=== PATIENT | male | born 1945 | race Caucasian/White ===

== ENCOUNTER → 2024-01-18 11:37 | Outpatient (REF) | payer BC, SELFPAY ==
[2024-01-18 11:50] LABS: Urine Albumin Negative (Neg - Trace); Urine Bilirubin Negative (Negative); Urine Character Clear (Clear); Urine Color Yellow; Urine Glucose Negative (Negative); Urine Ketone Negative (Negative); Urine Leukocyte Negative (Negative); Urine Nitrite Negative (Negative); Urine Occult Blood Negative (Negative); Urine Urobilinogen Negative (Neg - 1+); Urine pH 6.5 (5.0-9.0)
[2024-01-18 11:58] LABS: % Basophils 0.8 % (0-2); % Eosinophils 1.8 % (0-6); % Immature Granulocytes 0.3 % (0-0.5); % Lymphocytes 25.2 % (20.5-51.1); % Monocytes 9.9 % (1.7-9.3); Absolute Eosinophils 0.1 10^3/uL (0-0.7); Absolute Monocytes 0.4 10^3/uL (0.1-0.6); Absolute Neutrophils 2.4 10^3/uL (1.4-6.5); Hematocrit 41.2 % (39.0-52.0); Hemoglobin 14.2 g/dL (13.0-18.0); Mean Corp Hgb Conc. 34.5 g/dL (33.0-37.0); Mean Corpuscular Hgb 33.9 pg (27.0-31.0); Mean Corpuscular Volume 98.3 fL (80.0-94.0); Mean Platelet Volume 11.6 fL (7.4-10.4); Nucleated Red Blood Cells % 0 % (-); Platelet Count 178 10^3/uL (130-400); Red Blood Cell Count 4.19 10^6/uL (4.70-6.10); Red Cell Dist. Width 12.8 % (11.5-14.5); White Blood Cell Count 3.9 10^3/uL (4.8-10.8)
[2024-01-18 12:02] LABS: ALT (SGPT) 21 U/L (0-50); AST (SGOT) 29 U/L (17-59); Alkaline Phosphatase 64 U/L (38-126); Blood Urea Nitrogen 17 mg/dl (9-20); Calcium 9.4 mg/dl (8.4-10.2); Carbon Dioxide 32 mmol/L (22-30); Chloride 101 mmol/L (98-107); Glucose 84 mg/dl (70-99); HDL Cholesterol 53 mg/dl; LDL Cholesterol, Calculated 82 mg/dl; Phosphorus 3.4 mg/dl (2.5-4.5); Potassium 4.4 mmol/L (3.5-5.1); Sodium 136 mmol/L (135-145); Total Bilirubin 0.9 mg/dl (0.2-1.3); Total Cholesterol 147 mg/dl (50-199); Total Protein 6.3 g/dl (6.3-8.2); Triglyceride 64 mg/dl (10-149); Very Low Density Lipoprotein 12 mg/dl (0-30); eGFR > 60.00
[2024-01-18 13:45] LABS: Vitamin D, 25-OH*** 35.1 ng/mL (30-80)
[2024-01-18 13:59] LABS: PSA, Total - Diagnostic 0.77 ng/ml (0.0-4.0)
== END ==
LOC: OLABPV 11:37
PROVIDERS: ATTENDING PHYSICIAN Internal Medicine Geriatric Medicine
DX: E78.2 Mixed hyperlipidemia (principal); Z00.00 Encounter for general adult medical examination without abnormal findings; Z12.5 Encounter for screening for malignant neoplasm of prostate; E87.1 Hypo-osmolality and hyponatremia
CPT/HCPCS: 36415; 80053; 80061; 81003; 82306; 84100; 84153; 85025

== ENCOUNTER → 2025-01-02 13:13 | Outpatient (REF) | payer BC, MEDICARE, SELFPAY | LOC: RAD 13:13 | PROVIDERS: ATTENDING PHYSICIAN Nurse Practitioner Primary Care | DX: M79.651 Pain in right thigh (principal); M54.50 Low back pain, unspecified | CPT/HCPCS: 72110; 73552 ==

== ENCOUNTER → 2025-01-09 09:50 | Outpatient (REF) | payer BC, MEDICARE, SELFPAY ==
[2025-01-09 10:51] LABS: Hematocrit 40.1 % (39.0-52.0); Hemoglobin 13.8 g/dL (13.0-18.0); Mean Corp Hgb Conc. 34.4 g/dL (33.0-37.0); Mean Corpuscular Volume 97.3 fL (80.0-94.0); Nucleated Red Blood Cells % 0 % (-); Platelet Count 171 10^3/uL (130-400); Red Cell Dist. Width 12.7 % (11.5-14.5)
[2025-01-09 11:20] LABS: Vitamin D, 25-OH*** 40.5 ng/mL (30-80)
[2025-01-09 11:48] LABS: ALT (SGPT) 22 U/L (0-50); AST (SGOT) 25 U/L (17-59); Albumin 4.3 g/dl (3.5-5.0); Alkaline Phosphatase 57 U/L (38-126); Blood Urea Nitrogen 16 mg/dl (9-20); Calcium 9.1 mg/dl (8.4-10.2); Carbon Dioxide 29 mmol/L (22-30); Chloride 104 mmol/L (98-107); Glucose 80 mg/dl (70-99); HDL Cholesterol 55 mg/dl; LDL Cholesterol, Calculated 81 mg/dl; Potassium 4.4 mmol/L (3.5-5.1); Sodium 138 mmol/L (135-145); Total Protein 6.7 g/dl (6.3-8.2); Very Low Density Lipoprotein 13 mg/dl (0-30); eGFR > 60.00
== END ==
LOC: OLABPV 09:50
PROVIDERS: ATTENDING PHYSICIAN Nurse Practitioner Primary Care
DX: M79.651 Pain in right thigh (principal); E78.2 Mixed hyperlipidemia
CPT/HCPCS: 36415; 80053; 80061; 82306; 84443; 85025

== ENCOUNTER → 2025-01-31 11:32 | Outpatient (REF) | payer BC, MEDICARE, SELFPAY ==
[2025-01-31 13:34] LABS: FSH 2.8 mIU/ml (1.55-9.74)
[2025-01-31 13:49] LABS: PSA, Total - Screen 0.75 ng/ml (0.0-4.0)
== END ==
LOC: OLABPV 11:32
PROVIDERS: ATTENDING PHYSICIAN Internal Medicine Geriatric Medicine
DX: E78.2 Mixed hyperlipidemia (principal); Z00.00 Encounter for general adult medical examination without abnormal findings; Z91.81 History of falling; M54.50 Low back pain, unspecified; Z12.5 Encounter for screening for malignant neoplasm of prostate; N52.8 Other male erectile dysfunction
CPT/HCPCS: 36415; 83001; 83002; 84270; 84402; 84403; G0103

== ENCOUNTER → 2025-02-21 11:33 | Outpatient (REF) | payer MEDICARE, BC, SELFPAY | LOC: OLABPV 11:33 | PROVIDERS: ATTENDING PHYSICIAN Internal Medicine Geriatric Medicine | DX: N52.9 Male erectile dysfunction, unspecified (principal); Z79.899 Other long term (current) drug therapy; R30.0 Dysuria | CPT/HCPCS: 36415; 84270; 84402; 84403 ==

== ENCOUNTER 2025-05-25 03:47 | Observation (INO) | payer MEDICARE, BC, SELFPAY ==
[2025-05-25] VITALS (9 sets, daily range): BP systolic 139–154; BP diastolic 70–88; BMI 19.9
[2025-05-25 00:47] LABS: Glucose - Point of Care 87 mg/dl (70-99)
--- NOTE | 2025-05-25 00:48 | ED.GENMED ---
History of Present Illness
General
Chief Complaint: Change in Mental Status
Time Seen by Provider: 05/25/25 00:16
Nursing documentation reviewed up to this point in time: agreed with
History of Present Illness
History of Present Illness:
79-year-old male brought to the ER by his for evaluation of confusion which started at 10:00 tonight. Patient could not recall that it was Gerard. He had no recollection of the events of earlier today. Patient denies any complaints of
physical pain. is present at bedside reports no recent trauma or injury. He was eating and drinking normally. No excessive stress today. No reported recent illness. No recent change in medications. Patient was hospitalized previously for
a similar episode of confusion which was diagnosed as transient global amnesia. He is not on any long-term anticoagulants, other than daily baby aspirin.
Past History
Past History
ED Past Medical History: None
ED Past Surgical History: None
Social History
Tobacco: Non-smoker
Personal:
Living: with family
Review of Systems
Review of Systems
Allergies reviewed?: Yes
Phy Exam
Physical Exam
Physical Exam:
Patient is awake, alert, appears in no acute distress, head is NCAT, PERRL, EOMI mucous membranes moist, conjunctiva pink, heart regular rate and rhythm without murmurs or ectopy, lungs are clear to auscultation without wheezes rales or rhonchi, no
JVD, abdomen is soft and nontender on palpation, extremities without edema, GCS is 14 due to confusion, moving extremity symmetrically without focal deficit, no dysdiadochokinesia, no ataxia, no pronator drift
Scores
NIH Stroke Score
Level of Consciousness: 0 - Alert
LOC Questions: 1-Answers one correctly
LOC Commands: 0-Performs both correctly
Best Horizontal Gaze: 0-Normal
Visual Lopez: 0=Normal, no visual loss
Facial Palsy: 0=Normal, symmetrical
Motor - Right Arm: 0=No drift 10 seconds
Motor - Left Arm: 0=No drift 10 seconds
Motor - Right Le-No drift 5 seconds
Motor - Left Le-No drift 5 seconds
Limb Ataxia: 0-Absent
Sensation: 0-Normal
Best Language: 0-No aphasia
Dysarthria: 0-Normal
Extinction and Inattention: 0-No abnormality
NIH Total Score:: 1
Course
Orders/Labs/Results
Orders:
Orders
05/25/25 00:15
Electrocardiogram (*1) Urgent
Reason for Study: Chest Pain
EKG- Treatment ONCE
05/25/25 00:24
CT Head W/o Iv Contrast Urgent
Comment:
Reason For Exam: altered mental status
Bedside Glucose- Treatment ONCE
05/25/25 00:26
CR Chest - 2 Views Urgent
Comment:
Reason For Exam: altered mental status
05/25/25 00:27
Urinalysis Reflex To Culture Urgent
Date Specimen was Collected: 05/25/25
Time Specimen was Collected: 02:11
05/25/25 00:31
Complete Blood Count/With Diff Urgent
Comprehensive Metabolic Panel Urgent
Troponin I Urgent
05/25/25 01:48
Speech Screening from Jerzy Routine
Abnormal Lab Results
05/25/25
00:31
RBC 3.95 L 10^6/uL
(4.70-6.10)
Hct 37.7 L %
(39.0-52.0)
MCV 95.4 H fL
(80.0-94.0)
MCH 32.9 H pg
(27.0-31.0)
Absolute Lymphs (auto) 0.9 L 10^3/uL
(1.2-3.4)
Lymphocytes % 14.5 L %
(20.5-51.1)
05/25/25 00:31
05/25/25 00:31
Vital Signs
Initial and Last Documented VS:
Initial Vital Signs
Temp Pulse Resp BP Pulse Ox
98.4 F 77 14 154/88 97
05/25/25 00:03 05/25/25 00:03 05/25/25 00:03 05/25/25 00:03 05/25/25 00:03
Last Documented Vital Signs
Temp Pulse Resp BP Pulse Ox
98.4 F 67 14 146/73 98
05/25/25 00:03 05/25/25 01:45 05/25/25 01:45 05/25/25 01:00 05/25/25 01:45
MDM/Problems Addressed
Differential Diagnosis Includes:
Differential diagnosis to consider but not limited to transient global amnesia, intracranial hemorrhage, intracranial mass, electrolyte dyscrasia, occult infection along with other etiologies considered
Chronic conditions affecting care:
Previous transient global amnesia episode, vertigo
*Radiology
Radiology exam reviewed: preliminary read by ED provider (I independently viewed and interpreted 2 view chest xray showing no acute process, no infiltrate) and radiology read reviewed (no acute finding on CT head)
*Pulse Oximetry
SaO2: 99
Oxygen Mode of Delivery: Room air
Patient hypoxic: no
*EKG
Interpreted by ED Provider?: Yes (I independently viewed and interpreted twelve-lead EKG showing normal sinus rhythm, rate 69, incomplete right bundle branch block, no ST elevation, mild baseline artifact, this is a nonspecific EKG without evidence
for acute ischemia, similar to prior from 03/05/2016)
*Fisher Trot Line Interpretation
Rate: normal (I independently viewed and interpreted rhythm strip showing normal sinus rhythm, no ectopy)
*Critical Care Note
Total Time (30-74mins, 75-104mins- exclusive of procedures): Not Applicable
Data Reviewed
Review of Other/Old Records Reveals: Discharge Summary (I reviewed discharge summary from Dr. Webber dated 03/06/2016-patient was evaluated for transient global amnesia, advised to use low-dose aspirin daily.)
Update Note
Update Note:
I discussed with patient and present at bedside need for further neurologic assessment to rule out possible etiologies of his symptoms. They agree with plan for likely overnight observation in the hospital. Awaiting results.
0140: I reviewed test results so far with patient and present at bedside. Patient still slightly pleasantly confused, no other focal findings on neuroexam. I discussed with him need for urinalysis. They are still in agreement with plan for
admission. I reviewed with patient presentation with hospitalist who accepts patient for admission.
ED Attending Note
-
Portions of this chart may have been created with voice recognition software.� Occasional wrong word or��sound alike� substitutions may have occurred due to the inherent limitations of voice recognition software.
Discharge Plan
Departure
Patient Disposition: Admit
Date of Disposition: 05/25/25
Time of Disposition: 02:13
Presentation/result/management discussed w/ accepting MD/DO: Hospitalist
Discharge Problem:
Acute alteration in mental status
Prescriptions:
No Action
dwybgqbq-pdd-AN-lycopen-lutein [Centrum Silver] 1 EACH tablet
1 ea PO DAILY
aspirin 81 MG tablet,delayed release (DR/EC)
81 mg PO DAILY Qty: 1 0RF
cholecalciferol (vitamin D3) 2,000 UNIT tablet
2,000 unit PO DAILY Qty: 1 0RF
Referrals:
Andrés Quinn MD [Family Provider, Internal Medicine]
Interventions
Interventions:
*General Assessment Last Done: 05/25/25 00:15
*Neglect/Abuse Screening Last Done: 05/25/25 00:15
*ED COVID-19 Vaccine History Last Done: 05/25/25 00:15
*ED Influenza Vaccine History Last Done: 05/25/25 00:15
[facility] Risk Assessment Tool Last Done: 05/25/25 00:34
*Risk Screen - Suicide (C-SSRS) Last Done: 05/25/25 00:03
ED- Neurological Assessment Last Done: 05/25/25 00:47
ED- Cardiac Assessment Last Done: 05/25/25 00:47
ED Swallowing Screen Last Done: 05/25/25 01:47
Discharge Date and Time
Print Language: SLOVENIAN
[2025-05-25 01:07] LABS: ALT (SGPT) 19 U/L (0-50); AST (SGOT) 23 U/L (17-59); Albumin 3.8 g/dl (3.5-5.0); Alkaline Phosphatase 78 U/L (38-126); Blood Urea Nitrogen 20 mg/dl (9-20); Calcium 9.1 mg/dl (8.4-10.2); Carbon Dioxide 29 mmol/L (22-30); Chloride 103 mmol/L (98-107); Estimated Creatinine Clearance 69 ml/min; Glucose 91 mg/dl (70-99); Potassium 4.0 mmol/L (3.5-5.1); Sodium 137 mmol/L (135-145); Total Protein 6.9 g/dl (6.3-8.2); eGFR > 60.00
[2025-05-25 01:09] LABS: Hematocrit 37.7 % (39.0-52.0); Hemoglobin 13.0 g/dL (13.0-18.0); Mean Corp Hgb Conc. 34.5 g/dL (33.0-37.0); Mean Corpuscular Volume 95.4 fL (80.0-94.0); Nucleated Red Blood Cells % 0 % (-); Platelet Count 315 10^3/uL (130-400); Red Cell Dist. Width 12.5 % (11.5-14.5)
[2025-05-25 01:17] LABS: Troponin I < 0.012 ng/ml
[2025-05-25 03:15] LABS: Urine Character Clear (Clear)
--- NOTE | 2025-05-25 03:36 | HPS.HSE ---
Family Physician
-
Family Physician: Andrés Quinn
Chief Complaint
-
Confusion
History of Present Illness
Patient is an 79y M with PMH significant for dyslipidemia and prior episode of TGA who presents to ED for evaluation of confusion / disorientation. History obtained from patient and his at the bedside. states that patient was his
usual self for most of the day today. Around 10 PM, patient became somewhat confused / disoriented. He could not recall writing several checks, nor why he had written them. He could not recall that it was Gerard. He had no complaint of
headache, no vision changes and no focal weakness.
They called 911 an presented to the ED for further evaluation.
Patient had a similar episode in 2016 which was attributed to TGA at that time.
Patient notes that he was on doxycycline for about one week for symptoms of sinus infection. This completed on Wednesday.
No other new medications.
Here in the ED, patient has poor recall of the events leading up to his hospitalization. He otherwise has no complaints and is able to answer questions appropriately.
Medical History
Past Medical History
Past Medical History: Reports Other
Additional Past Medical History:
Dyslipidemia
Transient Global Amnesia (2016)
Past Surgical History: Reports None
Social History
Tobacco: Non-smoker
Alcohol: Occasional (Rare glass of wine.)
Drug: None
Personal:
Living: With Family
Family History
Family History: Not pertinent
Allergies / Home Medications
Allergies reflects when Allergies were last updated in [employer].
Home Medications with original date entered in [employer]
Allergy/Medication List:
Allergies
Allergy/AdvReac Type Severity Reaction Status Date / Time
No Known Allergies Allergy Verified 05/25/25 00:03
Home Medications
gwcgxdve-fpn-yzecb acid 0.4 mg-lycopene 300 mcg-lutein 250 mcg tablet (Centrum Silver) 1 ea PO DAILY 03/05/16
pravastatin 20 mg tablet 20 mg PO DAILY 05/25/25
Review of Systems
-
History Source: Patient and Family
A 12 point ROS was completed and negative except as noted: Yes
Constitutional: Denies Fever, Fatigue or Chills
EENT: Denies Sore Throat
Respiratory: Denies Cough or Trouble Breathing
Cardiac: Denies Chest Pain or Palpitations
Abdomen/GI: Denies Abdominal Pain, Nausea, Vomiting or Diarrhea
: Denies Dysuria or Frequency
Musculoskeletal: Denies Joint Pain or Edema
Neurological: Denies Dizzy, Headache, Weakness or Numbness
Psych: Reports Other (Confusion)
Physical Exam
Vital Signs
Vital Signs
Temp Pulse Resp BP Pulse Ox
98.4 F 72 15 152/83 98
05/25/25 00:03 05/25/25 03:00 05/25/25 03:00 05/25/25 02:00 05/25/25 03:00
Physical Exam
General: Other (79y M in no distress.)
HEENT: Moist mucous membranes and PERRLA
Respiratory: Clear; No Wheezes, Rales or Rhonchi
Cardiac: S1/S2 and Regular Rhythm; No Murmur
GI: Soft, Non Tender, Non Distended and Normal Bowel Sounds
Musculoskeletal: No Clubbing, No Cyanosis and No Edema
Neuro: AO x 3 and Nonfocal/grossly intact
Laboratory Results
-
05/25/25 00:31
05/25/25 00:31
Laboratory Results
Total Bilirubin 0.5 mg/dl (0.2-1.3) 05/25/25 00:31
AST 23 U/L (17-59) 05/25/25 00:31
ALT 19 U/L (0-50) 05/25/25 00:31
Alkaline Phosphatase 78 U/L (38-126) 05/25/25 00:31
Troponin I < 0.012 ng/ml 05/25/25 00:31
Impression/Plan
-
A/P: Patient is an 79y M with PMH significant for dyslipidemia and prior TGA who presents to ED for evaluation of confusion / disorientation this evening.
Transient Confusion
- Observe overnight for further evaluation and treatment.
- Unclear etiology of symptoms - though seems back to baseline at present.
- ? recurrent TGA.
- Monitor for any new / recurrent symptoms.
- Neurology evaluation in AM - defer any additional studies / evaluation to them.
- PT / OT / Speech evaluations.
DVT Prophylaxis: SCDs
Code Status: Full
[2025-05-25 05:13] LABS: Urine Red Blood Cell 0-2 /HPF (0-2); Urine Squamous Cell 0-2 /LPF (Few); Urine White Cell 0-2 /HPF (0-5)
[2025-05-25 06:26] LABS: Hematocrit 40.7 % (39.0-52.0); Hemoglobin 13.9 g/dL (13.0-18.0); Mean Corp Hgb Conc. 34.2 g/dL (33.0-37.0); Mean Corpuscular Volume 94.9 fL (80.0-94.0); Platelet Count 310 10^3/uL (130-400); Red Cell Dist. Width 12.5 % (11.5-14.5)
[2025-05-25 06:53] LABS: Blood Urea Nitrogen 18 mg/dl (9-20); Calcium 9.1 mg/dl (8.4-10.2); Carbon Dioxide 28 mmol/L (22-30); Chloride 102 mmol/L (98-107); Estimated Creatinine Clearance 79 ml/min; Glucose 94 mg/dl (70-99); HDL Cholesterol 46 mg/dl; LDL Cholesterol, Calculated 90 mg/dl; Potassium 4.4 mmol/L (3.5-5.1); Sodium 135 mmol/L (135-145); Very Low Density Lipoprotein 10 mg/dl (0-30); eGFR > 60.00
--- NOTE | 2025-05-25 08:19 | W.PN.HOSP.TC ---
Addendum entered and electronically signed by Norma Schmidt MD 05/25/25 09:51:
d/w Neuro, recc: MRI brain with and without to look for structural abnormalities (may be done outpatient), and EEG to rule out seizure activity (may be done outpatient).
Pt does not want to stay for these studies, hence recc to get them outpt (to be arranged by PCP).
Pt discharged per his request.
Original Note:
Today's Communication/Plan
-
see A/P
Assessment / Plan
Assessment / Plan
HPI: 79 yo M with PMH significant for dyslipidemia and prior episode of TGA; who presented to ED for evaluation of confusion / disorientation. History obtained from patient and his at the bedside. states that patient was his usual self
for most of the day but around 10 PM, patient became somewhat confused / disoriented. He could not recall writing several checks, nor why he had written them. He could not recall that it was Gerard. He had no complaint of headache, no vision
changes and no focal weakness.
They called 911 an presented to the ED for further evaluation.
Patient had a similar episode in 2016 which was attributed to TGA at that time.
Patient notes that he was on doxycycline for about one week for symptoms of sinus infection. This completed on Wednesday.
No other new medications.
In the ED, patient has poor recall of the events leading up to his hospitalization. He otherwise has no complaints and is able to answer questions appropriately.
A/P:
# Transient Confusion, resolved
Unclear etiology of symptoms - though seems back to baseline at present. ? recurrent TGA.
Monitor for any new / recurrent symptoms.
Follow CT head report
Neurology evaluation- defer any additional studies / evaluation to them.
PT / OT / Speech evaluations.
DVT Prophylaxis: SCDs
Code Status: Full
Anticipated Discharge: Within 24 hours
Subjective/Interval History
-
Date of Service: May 25, 2025
Objective Data
-
Labs:
Laboratory Results
05/25/25 05/25/25
00:31 06:15
WBC 6.1 5.7
Hgb 13.0 13.9
Hct 37.7 L 40.7
Plt Count 315 310
Sodium 137 135
Potassium 4.0 4.4
Chloride 103 102
Carbon Dioxide 29 28
BUN 20 18
Creatinine 0.8 0.7
Glucose 91 94
Calcium 9.1 9.1
Total Bilirubin 0.5
AST 23
ALT 19
Alkaline Phosphatase 78
Vital Signs:
Vital Signs
Temp Pulse Resp BP Pulse Ox
36.9 C 104 18 145/80 98
05/25/25 00:03 05/25/25 07:31 05/25/25 07:31 05/25/25 07:00 05/25/25 07:15
I&O
05/24/25 05/25/25 05/26/25
06:59 06:59 06:59
Output Total 150 / 150
Balance -150 / -150
Review of Systems
-
History Source: Patient
All other systems: Reviewed and negative
Physical Exam
-
General: Well Developed, Well Nourished, No Apparent Distress, Comfortable and Conversant; Negative Respiratory Distress
HEENT: Normocephalic, Atraumatic, Nose Appears Normal and Ears Appear Normal; Negative Oxygen
Respiratory: Clear to Auscultation and Non Labored Respirations; Negative Accessory Resp Muscle Use
Cardiac: Regular Rhythm and S1/S2
GI: Soft, Nontender, Nondistended and Normal Bowel Sounds
Skin: Warm and Dry
Neuro: Awake, Alert, Oriented, AO x 3 and Nonfocal/Grossly Intact
Psych: Calm and Intact Judgement/Insight
Data Reviewed
-
Labs: Labs Reviewed by me
--- NOTE | 2025-05-25 08:47 | EDCM ---
Chart reviewed [facility] reviewed with patient and
Lives with in [facility]
Independent no DME
PCP Dr. Quinn
[facility] on
no hx of VN nor SNF
DC back to [place] and will call [facility] to pick them up
No CM needs identified at this time
--- NOTE | 2025-05-25 08:56 | CON.NEURO ---
Addendum entered and electronically signed by Gilberto Santana MD 05/25/25 23:42:
I saw and examined the patient along with the Nurse Practitioner Varsha Qureshi, and I agree with her assessment and management plan. Given below is my addendum.
The patient is an 79 years old female, who likely had an episode of TGA, which was similar to the one he had in 2016. The patient has returned to his baseline mental status in about 8 hours after the onset of symptoms. Seizure appears to be less
likely.
The Neurologic Examination is unremarkable.
The plan is to get MRI brain with and without contrast and EEG.
Follow up in Neurology clinic.
I had a detailed discussion with the patient and his regarding the assessment and management plan, and they verbalized understanding of our discussion. The patient did not want to stay in the hospital for the MRI and EEG. They were told to make
sure that they follow up with Neurology in clinic and have the MRI and EEG done [place].
I
Original Note:
Neuro Assessment/Plan
Assessment
Patient is an 79 year old male with PMH significant for dyslipidemia and prior episode of TGA in 2016 who presented to [facility] on 05/25/2025 for evaluation of confusion / disorientation.
Head CT 05/25/2025: No acute intracranial abnormalities
Brain MRI 03/06/2016: No acute intracranial findings. Atrophy and white matter disease consistent with age.
Plan
Impression: abrupt onset of amnestic event self limiting, differentials include TGA vs seizure
-obtain MRI brain with and without to look for structural abnormalities (may be done outpatient)
-obtain EEG to rule out seizure activity (may be done outpatient)
-follow up with neurology office outpatient
All questions encouraged and answered, plan of care discussed with Dr. Santana, hospitalist, patient and
Consultation
Order
Date of Consultation: 05/25/25
Requesting Provider: hospitalist/Dr. Norma Schmidt
Reason for Consult: memory issues
Subjective/Objective
Subjective Data
Date of Service: May 25, 2025
Patient is an 79 year old male with PMH significant for dyslipidemia and prior episode of TGA in 2016 who presented to [facility] on 05/25/2025 for evaluation of confusion / disorientation. states that patient was his usual self for most of the day
but around 10 PM, patient became somewhat confused / disoriented. He could not recall writing several checks, nor why he had written them. He could not recall that it was Oscar. He had no complaint of headache, no vision changes and no focal
weakness. They called 911 an presented to the ED for further evaluation. Patient had a similar episode in 2016 which was attributed to TGA at that time, all work up had been unremarkable. Patient notes that he was on doxycycline for about one week
for symptoms of sinus infection. This completed on Wednesday. No other new medications. In the ED, patient has poor recall of the events leading up to his hospitalization. He otherwise has no complaints and is able to answer questions appropriately.
His vital signs are stable. His head CT showed no acute intracranial abnormalities. He states he would like to go home.
Objective Data
Vital Signs
Temp Pulse Resp BP Pulse Ox
98.4 F 104 18 145/80 98
05/25/25 00:03 05/25/25 07:31 05/25/25 07:31 05/25/25 07:00 05/25/25 07:15
Lab Results
05/25/25 06:15
05/25/25 06:15
Sodium 135 mmol/L (135-145) 05/25/25 06:15
Potassium 4.4 mmol/L (3.5-5.1) 05/25/25 06:15
BUN 18 mg/dl (9-20) 05/25/25 06:15
Glucose 94 mg/dl (70-99) 05/25/25 06:15
Calcium 9.1 mg/dl (8.4-10.2) 05/25/25 06:15
LDL Cholesterol, Calc 90 mg/dl 05/25/25 06:15
Patient Allergies
No Known Allergies Allergy (Verified 05/25/25 00:03)
Physical Exam
-
General: Comfortable and Appears Stated Age
HEENT: Normocephalic and Atraumatic
Neck: Full Range of Motion
Respiratory: No Dyspnea
Cardiac: No JVD
GI: Non-distended
Skin: Unremarkable
Extremities: No Clubbing, No Cyanosis and No Edema
Psych: Unremarkable
Extended Neurological Exam
Mood & Affect: Mood Unremarkable
Attention Span & Concentration: Awake, Alert, Interactive and No Difficulty with 2 Step Request
Memory: Unremarkable
Speech: Quality Unremarkable, Quantity Unremarkable and Rate of Production Unremarkable
Cranial Nerve VII: Facial Symmetry: Normal Facial Symmetry
Cranial Nerve VIII: Hearing: Unremarkable Hearing to Normal Conversational Volume
Muscle Strength, Overall: Full Throughout
Pronator Drift: No Drift in Upper Extremities and No Drift in Lower Extremities
Data Reviewed
-
CT Head: Report Reviewed and Image Reviewed
MRI Head: Report Reviewed and Image Reviewed
Medical Test Reports: Report Reviewed
Labs: Report Reviewed
Reviewed with: Physician, Patient and Family
Old Records: Summarized
Medications
-
Active Medications
Generic Name Dose Route Start Last Admin
Trade Name Freq PRN Reason Stop Dose Admin
Acetaminophen 650 mg 05/25/25 04:59
Acetaminophen 325 Mg Tablet PO 06/22/25 04:58
Q4HPRN PRN
Mild Pain / Temp > 101
Aspirin 81 mg 05/25/25 08:00 05/25/25 08:22
Aspirin 81 Mg Chewable Tablet PO 06/22/25 07:59 Not Given
DAILY EMMANUELLE
Pravastatin Sodium 20 mg 05/25/25 08:00
Pravastatin 20 Mg Tablet PO 06/22/25 07:59
DAILY EMMANUELLE
Sodium Chloride 0 flush 05/25/25 06:00
Sodium Chloride 0.9% (Flush) Syringe IV 06/22/25 05:59
PER PROTOCOL EMMANUELLE
Home Medications
�Medication �Instructions �Recorded
acetaminophen 500 mg tablet 1,000 mg PO Q6H PRN mild pain 05/25/25
pravastatin 20 mg tablet 20 mg PO HS High Cholesterol 05/25/25
therapeutic multivitamin 1 tab PO DAILY Supplement 05/25/25
Past History
Past History
ED Past Medical History: None
ED Past Surgical History: None
Family/Social History
Tobacco: Non-smoker
Personal:
Living: with family
[2025-05-25] MEDS: PRAVACHOL 20 MG PO (09:18)
[2025-05-25 09:37] LABS: Glycohemoglobin (HgbA1c) 5.7 % (4.0-5.9)
--- NOTE | 2025-05-25 10:13 | PTOTSP ---
Speech Therapy Evaluation
Pt seen for bedside swallow assessment. Pt with increased risk of aspiration given recent change in mentation/confusion. Pt admitted with suspected transient global amnesia, which appears to have resolved. With PO trials of regular solids and thin
liquids, pt demonstrated adequate mastication, transfer, and clearance with no overt s/sx of aspiration. Pt denied odynophagia and globus sensation.�Pt is on room air and WBC WNL.
Recommend:�
1. Regular solids and thin liquids
2. Medication as best tolerated
3. Standard aspiration precautions
4. RAIN[employer] to s/o
--- NOTE | 2025-05-25 14:06 | W.DCSUMMARY ---
Discharge Summary
Discharge Data
Date of Admission: 05/25/25
Date of Discharge: 05/25/25
Total time spent discharging patient (in min): 40
-
Pending Results: No
Hospital Course
Principal Diagnosis:
Transient confusion, resolved
Chronic Diagnoses:�
Dyslipidemia
Prior episode of TGA
Consultations:�
Neurology
Procedures:�
None
Clinical course:�
This is a 79-year-old male with past medical history as stated above, who presented with confusion and disorientation.
This seemed to have resolved when he arrived to the emergency room.
The patient had a similar episode in 2016 which was attributed to TGA at that time.
Problem 1:
Transient Confusion, resolved with return of mental status back to baseline AO x 3.
Unclear if this is due to recurrent TGA.
His CT head on admission was unrevealing.
Neurology was consulted and recommended MRI brain and EEG, both of which can be done outpatient, given patient is eager to be discharged due to impending weather.
As for the rest of his medical problems, they were stable during his hospital stay.
Discharge Plan
-
Patient Disposition: Home (Routine Discharge)
Discharge Diagnosis/Procedures: Transient confusion, resolved
Condition: Fair
Diet: As tolerated
Activity: As tolerated
Driving Restrictions: As prior to admission
Others Tests: Neurology recc to check:
-MRI brain with and without to look for structural abnormalities (may be done outpatient)
-EEG to rule out seizure activity (may be done outpatient)
Please have these studies arranged by your PCP
Referrals:
Andrés Quinn MD [Family Provider, Internal Medicine] - in less than 1 week
Prescriptions:
Continued
pravastatin 20 mg Tablet
20 mg PO HS
therapeutic multivitamin Tablet
1 tab PO DAILY
acetaminophen 500 mg Tablet
1,000 mg PO Q6H PRN (Reason: mild pain)
Discharge Orders:
Discharge Patient (As Directed); Ordered 05/25/25
Ordered By: Norma Schmidt
Discharge Date and Time
Discharge Date/Time: 05/25/25 10:11
Print Language: FAROESE
== END 2025-05-25 10:11 | disposition home or self-care (01) ==
LOC: ED 03:47
PROVIDERS: ADMITTING PHYSICIAN Hospitalist; ATTENDING PHYSICIAN Internal Medicine; CONSULT PHYSICIAN Psychiatry & Neurology Neurology; EMERGENCY PHYSICIAN Emergency Medicine; FAMILY PHYSICIAN Internal Medicine Geriatric Medicine
DX: R41.3 Other amnesia (principal); R42 Dizziness and giddiness; Z79.82 Long term (current) use of aspirin; R07.9 Chest pain, unspecified; E78.5 Hyperlipidemia, unspecified; Z79.899 Other long term (current) drug therapy
CPT/HCPCS: 70450; 71046; 80048; 80053; 80061; 81003; 81015; 82962; 83036; 84443; 84484; 85025; 85027; 92610; 93005; 99285; G0378